=== PATIENT | female | born 1955 | race Caucasian/White ===

== ENCOUNTER 2018-01-16 20:39 | Emergency (ER) | payer MEDICAID ==
[2018-01-17 01:22] VITALS: BP 145/68; PULSE 69; RESP 16; TEMP 98.1; O2SAT 98
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
== END 2018-01-17 01:23 | disposition home or self-care (01) ==
LOC: H.ER 20:39
DX: M79.604 Pain in right leg (principal)

== ENCOUNTER 2018-01-18 04:42 | Emergency (ER) | payer MEDICAID ==
[2018-01-18 04:55] VITALS: BMI 41.5
[2018-01-18 04:59] VITALS: TEMP 98.2; O2SAT 99
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
[2018-01-18 06:42] VITALS: BP 138/83; PULSE 76; RESP 16
== END 2018-01-18 07:18 | disposition home or self-care (01) ==
LOC: H.ER 04:42
DX: G62.9 Polyneuropathy, unspecified (principal); L03.90 Cellulitis, unspecified

== ENCOUNTER 2018-01-18 11:58 | Emergency (ER) | payer MEDICAID ==
[2018-01-18 12:22] VITALS: BP 138/72; PULSE 78; O2SAT 96
[2018-01-18 12:24] VITALS: BMI 29.0
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
[2018-01-18 12:55] VITALS: RESP 18; TEMP 97
== END 2018-01-18 13:58 | disposition home or self-care (01) ==
LOC: H.ER 11:58
DX: G89.29 Other chronic pain (principal); M79.605 Pain in left leg; M79.604 Pain in right leg; G62.9 Polyneuropathy, unspecified; I10 Essential (primary) hypertension

== ENCOUNTER 2018-01-21 07:29 | Emergency (ER) | payer MEDICAID ==
[2018-01-21 07:39] VITALS: BP 136/69; PULSE 90; RESP 19; TEMP 98.3; O2SAT 97
--- NOTE | 2018-01-21 07:49 | ED PDOC ---
Lower Extremity Pain/Injury Time Seen by Provider: 01/21/18 07:34 Chief Complaint (Nursing): Lower Extremity Problem/Injury History Per: Patient Additional Complaint(s): Chronic wound to right lower ext. Seen here previously for dressing change. No fever. Past Medical History Vital Signs: Last Vital Signs Temp 98.3 F 01/21/18 07:38 Pulse 90 01/21/18 07:38 Resp 19 01/21/18 07:38 BP 136/69 01/21/18 07:38 Pulse Ox 97 01/21/18 07:38 - Medical History PMH: HTN, Chronic Pain (chronic cellulitis and neuropathic pain to lower extremities) - Family History Family History: States: Unknown Family Hx - Home Medications Home Medications: Ambulatory Orders Medication Instructions Recorded Gabapentin [Neurontin] 300 mg PO TID #15 cap 01/18/18 Ibuprofen [Motrin Tab] 800 mg PO Q6 #16 tab 01/18/18 - Allergies Allergies/Adverse Reactions: Allergies Allergy/AdvReac Type Severity Reaction Status Date / Time No Known Allergies Allergy Verified 01/18/18 04:55 Review of Systems Constitutional: Negative for: Fever Skin: Positive for: Other (Chronic dermatitis right lower ext) Physical Exam - Physical Exam Appears: Positive for: Non-toxic, No Acute Distress Extremity: Positive for: Other (Right lower ext, chronic cellulitic changes pretibial and lateral aspect. Serous drainage) - ECG O2 Sat by Pulse Oximetry: 97 Disposition - Clinical Impression Clinical Impression: Neuropathic pain, Chronic cellulitis - Patient ED Disposition Is Patient to be Admitted: No Counseled Patient/Family Regarding: Diagnosis, Need For Followup - Disposition Referrals: [facility] [Outside] Disposition: Routine/Home Disposition Time: 07:50 Condition: FAIR Instructions: Cellulitis and Erysipelas (Skin Infections), Neuropathic Pain
== END 2018-01-21 08:39 | disposition home or self-care (01) ==
LOC: H.ER 07:29
DX: L03.115 Cellulitis of right lower limb (principal); M79.2 Neuralgia and neuritis, unspecified

== ENCOUNTER 2018-01-23 19:56 | Emergency (ER) | payer MEDICAID ==
[2018-01-23 21:05] VITALS: BP 130/70; PULSE 78; RESP 18; TEMP 98; O2SAT 100
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
== END 2018-01-23 21:15 | disposition home or self-care (01) ==
LOC: H.ER 19:56
DX: Z48.00 Encounter for change or removal of nonsurgical wound dressing (principal); G89.29 Other chronic pain; I10 Essential (primary) hypertension

== ENCOUNTER 2018-01-25 19:12 | Emergency (ER) | payer MEDICAID ==
[2018-01-25 20:53] LABS: BASO % 0.3 % (0.0-2.0); EOS # 0.3 K/uL (0.0-0.7); EOS % 2.9 % (0.0-4.0); HEMOGLOBIN 10.5 g/dL (12.0-16.0); LYMPH # 1.9 K/uL (1.0-4.3); LYMPH % 19.5 % (20.0-40.0); MEAN CELL VOLUME 69.6 fl (81.0-99.0); MEAN CORPUSCULAR HEMOGLOBIN 21.9 pg (27.0-31.0); MEAN CORPUSCULAR HGB CONC 31.5 g/dL (33.0-37.0); MEAN PLATELET VOLUME 8.3 fl (7.2-11.7); MONO % 10.1 % (0.0-10.0); NEUT # 6.4 K/uL (1.8-7.0); NEUT % 67.2 % (50.0-75.0); NRBC % 0.1 % (0.0-0.0); RBC 4.8 Mil/uL (3.80-5.20); RED CELL DISTRIBUTION WIDTH 19.6 % (11.5-14.5); WHITE BLOOD COUNT 9.6 K/uL (4.8-10.8)
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
[2018-01-25 21:04] LABS: ALB/GLOB RATIO 1.1 (1.0-2.1); ALBUMIN 4.3 g/dL (3.5-5.0); ALT/SGPT 21 U/L (9-52); AST/SGOT 27 U/L (14-36); BLOOD UREA NITROGEN 16 mg/dl (7-17); GFR AFRICAN-AMERICAN > 60; GFR NON-AFRICAN AMERICAN > 60
[2018-01-25 21:09] LABS: PARTIAL THROMBOPLASTIN TIME 38.1 Seconds (25.6-37.1); PROTHROMBIN TIME 11.4 Seconds (9.8-13.1)
[2018-01-25 21:57] VITALS: BP 147/72; PULSE 76; RESP 16; TEMP 98.1
[2018-01-25 23:25] VITALS: O2SAT 98
== END 2018-01-25 21:57 | disposition home or self-care (01) ==
LOC: H.ER 19:12
DX: M62.81 Muscle weakness (generalized) (principal); G89.29 Other chronic pain; I10 Essential (primary) hypertension

== ENCOUNTER 2018-11-04 01:55 | Emergency (ER) | payer MEDICAID ==
[2018-11-04 02:06] VITALS: BP 120/68; PULSE 98; RESP 17; TEMP 97.8; O2SAT 97
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
== END 2018-11-04 03:20 | disposition home or self-care (01) ==
LOC: H.ER 01:55
DX: M79.606 Pain in leg, unspecified (principal); G89.29 Other chronic pain; I10 Essential (primary) hypertension